=== PATIENT | female | born 1935 | race African-American/Black ===

== ENCOUNTER 2018-03-14 13:23 | Emergency (ER) | payer MEDICARE ==
[2018-03-14] MEDS ORDERED: Sodium Bicarbonate 8.4%* 50 ML SYRINGE ONE (13:30)
[2018-03-14] MEDS ORDERED: EPINEPHrine SYR 0.1 MG/ML* (1:10,000) SYRINGE ONE (13:30)
[2018-03-14] MEDS ORDERED: Saline FLUSH-CENTRAL* 10 ML SYRINGE ONE (13:30)
[2018-03-14 14:18] VITALS: BP 00/0
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
== END 2018-03-14 14:18 | disposition expired ==
LOC: EDBD → ED 13:23 → MERGE 13:23 → ED 14:18
DX: I46.9 Cardiac arrest, cause unspecified (principal); S82.91XA Unspecified fracture of right lower leg, initial encounter for closed fracture; S32.9XXA Fracture of unspecified parts of lumbosacral spine and pelvis, initial encounter for closed fracture; V03.90XA Pedestrian on foot injured in collision with car, pick-up truck or van, unspecified whether traffic or nontraffic accident, initial encounter; Y92.9 Unspecified place or not applicable
CPT/HCPCS: 86922; 99285; J0171; P9040